=== PATIENT | male | born 1965 | race Two or more races ===

== ENCOUNTER 2024-07-24 18:34 | Emergency (ER) | payer MEDICAID, SELFPAY ==
[2024-07-24] VITALS (17 sets, daily range): BP systolic 119–238; BP diastolic 75–179; PULSE 42–124; RESP 11–24; TEMP 34.2–34.3; O2SAT 96–100; BMI 28.9
[2024-07-24] MEDS: ETOMIDATE INJ 2 MG/ML VIAL 10 ML 20 MG IVP (18:40)
--- NOTE | 2024-07-24 18:43 | PC.NURSE ---
Addendum entered by Chu Farooq RN 07/24/24 19:28: while intubating pt and getting report from EM, [facility] came to bedside to inform that meth pipe was found next to where pt was found down. Original Note: PT ARRIVES VIA EMS, FOUND ON GROUND, [facility] ADMINISTERED 8MG NARCAN, EMS GAVE 2MG NO RESPONSE TO ANY NARCAN
--- NOTE | 2024-07-24 18:45 | XR_ITS ---
Examination: AP chest single view Technique: AP portable supine chest single view exam date and time: July 24, 2024 1902 hrs. Comparison March 27, 2005 Indications: Stroke alert, massive brainstem hemorrhage today with hypoxic respiratory failure Findings: Endotracheal tube tip 4.5 cm above rojelio No aspiration pneumonia Normal heart size Osseous structures are intact Impression: Endotracheal tube tip 4.5 cm above rojelio No aspiration pneumonia
[2024-07-24] MEDS: CALCIUM CHLORIDE 10% INJ 10 ML SYRG IV (18:50)
--- NOTE | 2024-07-24 18:54 | XR_ITS ---
Examination: CTA carotids with intravenous contrast CTA brain, head with intravenous contrast. 2-D sagittal, coronal reconstructions. 3-D reconstructions. Exam date and time: July 24, 2024 1936 hrs. Indications: Stroke alert today, onset focal neurologic deficit today, massive brainstem hemorrhage on CT study July 24, 2024 CTDI: vol (mGy) 10.9 DLP: (mGycm) 444 Technique: Multiple CTA axial brain, head carotid images post intravenous contrast injection 100 cc, [id number]. 2-D sagittal, coronal reconstructions. 3-D reconstructions, 3-D post processing including vascular maximum intensity projection images. Low dose protocols were performed. One or more of the following dose reduction techniques were used; automated exposure control, adjustment of the mA and/or KV according to patient size, use of iterative reconstruction technique. 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
--- NOTE | 2024-07-24 18:54 | XR_ITS ---
Examination: CT brain head without contrast. 2-D sagittal coronal reconstructions Date and time of exam:July 24, 2024 1904 hrs. Indications: Stroke alert, onset focal neurologic deficit today CTDI: vol (mGy):50.4 DLP: (mGycm):1011 Technique: Multiple CT axial sections of the brain have been obtained, 5 mm slice thickness. Contrast has not been administered. 2-D sagittal, coronal reconstructions have been obtained Low dose protocols were performed. One or more of the following dose reduction techniques were used; automated exposure control, adjustment of the mA and/or KV according to patient size, use of iterative reconstruction technique. Findings: Large, 5 x 3.7 x 3.7 cm brainstem hemorrhage This hemorrhage has ruptured into the ventricular system and is producing obstructive hydrocephalus, compressing the aqueduct with enlargement of the frontal horns and lateral ventricles Hemorrhage is present in the third ventricle lateral ventricles frontal horn as well as subarachnoid hemorrhage in the basal cisterns including perimesencephalic cistern There also is subdural hemorrhage, minimal, 2 mm along the cerebellar tentorium and cerebral falx There is edema surrounding the brain stem hemorrhage extending into the cerebellar hemispheres The cerebellar tonsils are not optimally visualized Fourth ventricle is severely compressed by the brainstem hemorrhage Cranial vault is intact Impression: Massive brainstem hemorrhage which has ruptured into the ventricular system. The brainstem hemorrhage is producing obstructive hydrocephalus Extensive subarachnoid hemorrhage basal cisterns and milder subdural hemorrhage as above
--- NOTE | 2024-07-24 19:05 | PC.NURSE ---
[facility] Case # [id number] has been created
[2024-07-24 19:06] LABS: Collection Type, Urine Catheter; RBC,Urine 0 /hpf (0-3); Squamous Epithelial Cell,Urine 0 /hpf (0-5); WBC,Urine 0 /hpf (0-5)
[2024-07-24] MEDS: SUCCINYLCHOLINE INJ 20 MG/ML VIAL 10 ML 150 MG IV (19:06)
[2024-07-24] MEDS: Sodium Bicarb Inj 8.4% SYR 50 ML SYRINGE IV ×2 (19:08→19:16)
[2024-07-24] MEDS: fentaNYL 2,500 MCG/250 ML BAG 2,500 MCG/250 ML BAG IV (19:09)
[2024-07-24 19:10] LABS: Basophils % (Auto) 0 % (0-2.5); Eosinophils # (Auto) 0.1 Thou/mm3 (0.0-0.5); Eosinophils % (Auto) 0 % (0-10); Hematocrit 48.4 % (41.0-53.0); Hemoglobin 16.4 g/dL (13.5-16.0); Immature Granulocytes % (Auto) 1 % (0-0); Immature Granulocytes Auto 0.07 Thou/mm3 (0.00-0.00); Lymphocytes # (Auto) 1.8 Thou/mm3 (1.0-4.8); Lymphocytes % (Auto) 16 % (10-50); Mean Corpuscular HGB Conc 33.9 g/dl (31.0-37.0); Mean Corpuscular Hemoglobin 32.2 pg (25.0-35.0); Mean Corpuscular Volume 95 fL (80-100); Monocytes # (Auto) 0.9 Thou/mm3 (0.0-0.8); Monocytes % (Auto) 7 % (0-12); Neutrophils # (Auto) 8.7 Thou/mm3 (1.8-7.7); Neutrophils % (Auto) 75 % (37-80); Nucleated Red Blood Cell % 0 /100 WBC (0); Platelet Count 360 Thou/mm3 (140-440); RDW Standard Deviation 40.8 fL (35.1-43.9); Red Blood Count 5.09 Miln/mm3 (4.50-5.90); White Blood Count 11.5 Thou/mm3 (3.8-10.6)
[2024-07-24] MEDS: MIDAZOLAM/NS 100 MG IVPB 100 MG/100 ML BAG IV (19:10)
--- NOTE | 2024-07-24 19:12 | XR_ITS ---
Examination: AP chest single view Technique one AP portable supine chest single view Exam date and time: July 24, 20242000 hrs. Comparison July 24, 20241901 hrs. Indications: Hypoxic respiratory failure postintubation Findings: Tracheal tube tip 6.2 cm above rojelio Normal heart size No aspiration pneumonia Moderate osteopenia Impression: Tracheal tube tip 6.2 cm above rojelio
[2024-07-24] MEDS: EPINEPHrine INJ 0.1 MG/ML SYRINGE 10ML 1 MG IV (19:16)
[2024-07-24] MEDS: SODIUM BICARB INJ 8.4% 1 mEq/ML VIAL 50 ML 50 MEQ IV ×2 (19:16→19:17)
--- NOTE | 2024-07-24 19:17 | PC.NURSE ---
PT WENT INTO VTACH, NOT SUSTAINED AND 2GM OF MAGNESIUM GIVEN VIA CRASH CART. DR TORRES AT BEDSIDE
[2024-07-24 19:22] LABS: HCG Titer if Positive Negative; INR 1.1 (0.9-1.3); Partial Thromboplastin Time 29.9 Seconds (22.0-36.0); Prothrombin Time 12.3 Seconds (9.0-12.2)
[2024-07-24] MEDS: NICARDIPINE/NS 20MG IVPB 20 MG/200 ML BAG 50 MG IV (19:22)
--- NOTE | 2024-07-24 19:23 | EDNOTE_ITS ---
Altered Mental Status RME/HPI General Chief Complaint: Overdose Stated Complaint: STAT Time Seen by Provider: 07/24/24 18:57 Arrival date/time: 07/24/24 18:34 RME / HPI RME / HPI narrative: DR. RANGEL MAIN ED EVALUATION: 59 year old male presents to the Emergency Department [facility] with complaint of altered mental status; patient was found unresponsive on the ground. Last well known time was 2 PM today. No history or ROS obtainable by patient due to unresponsiveness. Related Data Home Medications ?Medication ?Instructions ?Recorded ?Confirmed No Known Home Medications 07/24/24 07/24/24 Allergies Allergy/AdvReac Type Severity Reaction Status Date / Time No Known Allergies Allergy Verified 09/19/22 12:19 Review of Systems Review of Systems ROS Unobtainable: unobtainable due to mental status Past Medical History Past Medical History CARDIAC: Negative Congestive Heart Failure RESPIRATORY: Negative Chronic Obstructive Pulmonary Disease (COPD) GENITOURINARY: Negative Renal Disease ENDOCRINE: Negative Diabetes Mellitus Type 1 or Diabetes Mellitus Type 2 Social History SMOKING STATUS: Never smoker SUBSTANCE USE: methamphetamine ALCOHOL: Current ED Exam General General appearance: Present other (nonresponsive, foaming in the mouth; no tonic clonic seizure activity) Head Head exam: Present atraumatic and other (no obvious head trauma) Eye Eye exam: Present other (fixed and dilated) ENT ENT exam: Present normal exam (no blood noted in the ears or mouth) and other Expanded ENT Exam Teeth exam: Present other (one front tooth missing) Chest Chest inspection: Present other (no obvious trauma) Respiratory Respiratory exam: Present respiratory distress (decreased bilateral breath sounds) and other (intubated); Absent wheezes Abdominal Exam Abdominal exam: Present other (no deformity) Extremities Exam Extremities exam: Present normal inspection Back Exam Back exam: Present normal inspection Neurological Exam Neurological exam: Present other (GCS of 3. Unable to examine. ) Psychiatric Psychiatric exam: Present other (Unable to examine. ) Skin Skin exam: Absent rash Course Course Course Narrative: 1842: Intubation time 1916: Patient in V-tachycardia. We gave calcium x2, bicarb x2, epi x1. Initial blood pressure was 234/170 and current blood pressure is 151/88. 1934: Patient went to CT. 1952: C collar placed. 2100: Discussed the findings and plan of care with both and daughter at bedside. At this time, they understand patient's condition and would like a full code. 2119: I spoke to the son Luke, explained the patient's case and severe condition. Quality Measures none Orders Category Date Time Status Bedside Blood Glucose NOW Care 07/24/24 18:54 Active Cyber Security Administrator NOW Care 07/24/24 18:54 Active Continuous Pulse Oximetry NOW Care 07/24/24 18:54 Completed EKG (ED ONLY) *Do not use* NOW Care 07/24/24 18:54 Completed In and Out Catheter NEEDED Care 07/24/24 18:54 Active Insert IV NOW Care 07/24/24 18:54 Active Intubation NOW Care 07/24/24 19:20 Completed NIH Stroke Scale now Care 07/24/24 18:54 Active NPO NOW Care 07/24/24 18:54 Active Nurse Swallow Screen x1 Care 07/24/24 18:54 Active Consult to Neurology / Tele-Neurology Routine Cons 07/24/24 18:[address] angio stroke protocol Stat Exams 07/24/24 18:[address] stroke protocol Stat Exams 07/24/24 18:54 Completed CXR [XR chest 1V post procedure] Stat Exams 07/24/24 19:12 Completed EKG (ED Only) Stat Exams 07/24/24 18:54 Ordered XR chest 1V post procedure Stat Exams 07/24/24 18:45 Completed Arterial Blood Gas Stat Lab 07/24/24 19:16 Completed CBC Stat Lab 07/24/24 19:02 Completed Comprehensive Metabolic Panel Stat Lab 07/24/24 19:02 Completed Drug Screen,Urine Stat Lab 07/24/24 18:56 Completed HCG Titer if Positive Stat Lab 07/24/24 19:02 Completed Magnesium Stat Lab 07/24/24 19:02 Completed Partial Thromboplastin Time Stat Lab 07/24/24 19:02 Completed Prothrombin Time with INR Stat Lab 07/24/24 19:02 Completed Troponin I Stat Lab 07/24/24 19:02 Completed Urinalysis Stat Lab 07/24/24 18:56 Completed Urine Culture Stat Lab 07/24/24 18:56 Received ALBUTEROL RT 0.5ml [Proventil Rt 0.5ml] Med 07/24/24 19:20 Discontinued 15 mg INH X1 ONE Calcium Chloride 10% Abboject Med 07/24/24 18:44 Discontinued 10 ml IV .STK-MED ONE Calcium Chloride 10% Abboject Med 07/24/24 18:47 Discontinued 10 ml IV X1 ONE Calcium Gluconate 10% Inj Med 07/24/24 18:44 Discontinued See Dose Instructions .ROUTE .STK-MED ONE EPINEPHrine Inj Abboject Med 07/24/24 19:16 Discontinued 1 mg IV X1 ONE Etomidate Inj [Amidate Inj] Med 07/24/24 18:34 Discontinued 20 mg .ROUTE .STK-MED ONE Etomidate Inj [Amidate Inj] Med 07/24/24 18:39 Discontinued 20 mg IVP X1 ONE Midazolam/Ns 100 mg Ivpb [Versed Pf Inj in Ns Premix] Med 07/24/24 18:45 Disc ontinued 100 mg in 100 ml IV 1 mg/hr Midazolam/Ns 100 mg Ivpb [Versed Pf Inj in Ns Premix] Med 07/24/24 18:57 Discontinued 100 mg in 100 ml IV 1 mg/hr Nicardipine/Ns 20Mg Ivpb [Cardene Ivpb] Med 07/24/24 19:13 Discontinued 20 mg in 200 ml IV .STK-MED Nicardipine/Ns 20Mg Ivpb [Cardene Ivpb] Med 07/24/24 19:19 Discontinued 20 mg in 200 ml IV 5 mg/hr Ondansetron Inj [Zofran Inj] Med 07/24/24 18:54 Discontinued 4 mg IV Q4HR PRN Sodium Bicarb 8.4% 50ml Vial* Med 07/24/24 19:15 Discontinued 50 meq IV X1 ONE Sodium Bicarb 8.4% 50ml Vial* Med 07/24/24 19:16 Discontinued 50 meq IV X1 ONE Sodium Bicarb 8.4% SYR Med 07/24/24 18:48 Discontinued 50 ml IV .STK-MED ONE Sodium Bicarb 8.4% SYR Med 07/24/24 19:35 Discontinued 50 ml IV X1 ONE Sodium Chloride Rt Noemi 0.9% [NS Rt Noemi 0.9%] Med 07/24/24 19:19 Discontinued 3 ml INH PRN PRN Succinylcholine Inj [Anectine Inj] Med 07/24/24 18:39 Discontinued 150 mg IV X1 ONE Succinylcholine Inj [Anectine Inj] Med 07/24/24 18:34 Discontinued 200 mg .ROUTE .STK-MED ONE fentaNYL 2,500 MCG/250 ML BAG [Sublimaze Inj 2,500 MCG/ Med 07/24/24 18:46 Discontinued 250 ML BAG] 2,500 mcg in 250 ml IV 25 mcg/hr fentaNYL 2,500 MCG/250 ML BAG [Sublimaze Inj 2,500 MCG/ Med 07/24/24 18:56 Discontinued 250 ML BAG] 2,500 mcg in 250 ml IV 25 mcg/hr levETIRAcetam INJ [Keppra Inj] Med 07/24/24 21:15 Discontinued 1,000 mg .ROUTE .STK-MED ONE levETIRAcetam INJ [Keppra Inj] Med 07/24/24 19:29 Discontinued 1,000 mg IVP X1 ONE levETIRAcetam INJ [Keppra Inj] Med 07/24/24 21:02 Discontinued 2,000 mg IVP X1 ONE Mechanical [Volume Ventilator] Stat RT 07/24/24 Active Oxygen Delivery NOW RT 07/24/24 18:54 Active Vital Signs Vital signs: Vital Signs Pulse Rate 46 L 07/24/24 18:54 Procedures -ED EKG Interpretation #1: Date of EK07/24/24 Time of EK:43 Rate: 54 Interpretation: Reviewed by me EKG Impression: Normal sinus rhythm Additional EKG comment: Hyperacute T waves. QTC 491 LVH Impression. Sinus bradycardia Intubation Time out performed: Yes sedative: Etomidate Mg Given: 20 paralytic: Succinylcholine Mg Given: 100 Laryngoscope: fiber optic video scope Assist Device Used: fiber optic device ET Tube Size: 8 ET Tube Uncuffed: No Tube Secured Depth (cm): 22 Tube Secured Location: teeth Tube Placement Confirmation: visualized tube passing through cords, equal breath sounds bilaterally, no breath sounds over epigastrium and confirmation by capnometry Patient Tolerated Procedure: well and no complications Intubation Complications: none Altered Mental Status MDM Narrative MDM Narrative:: 191: Patient wide complex possibly on monitor. + pulse present. LKN 2p? . No indication for tPA secondary to ICH. Initial blood pressure was 234/170 and current blood pressure is 151/88. Melissa Franco am scribing for and in the presence of Dr. Rangel. Patient data External records reviewed:: [facility] previous records (Reviewed last ED visit dated 09/19/22, discharged with the following: Other fatigue.) and EMS form Clinical information provided by:: EMS and family Social determinants that could affect healthcare access:: substance use (methamphetamine abuse) Patient has the following chronic illnesses:: Denies any PMHx, surgeries, daily medications, or known allergies. How is presenting disease/condition affected by chronic disease/condition?: no chronic disease Evaluation data The following diagnostics were reviewed and interpreted by me:: lab results, radiology exam(s) and EKG tracing(s) Lab and/or radiology exams considered but not ordered:: none Interpretation Summary: Procedure(s): CT stroke protocol Accession Number(s): [id number] cc: Osmar Araya MD; NO PRIMARY/FAMILY,PHYSICIAN; Adalgisa Rangel MD~ Examination: CT brain head without contrast. 2-D sagittal coronal reconstructions Date and time of exam:July 24, 2024 1904 hrs. Indications: Stroke alert, onset focal neurologic deficit today CTDI: vol (mGy):50.4 DLP: (mGycm):1011 Technique: Multiple CT axial sections of the brain have been obtained, 5 mm slice thickness. Contrast has not been administered. 2-D sagittal, coronal reconstructions have been obtained Low dose protocols were performed. One or more of the following dose reduction techniques were used; automated exposure control, adjustment of the mA and/or KV according to patient size, use of iterative reconstruction technique. Findings: Large, 5 x 3.7 x 3.7 cm brainstem hemorrhage This hemorrhage has ruptured into the ventricular system and is producing obstructive hydrocephalus, compressing the aqueduct with enlargement of the frontal horns and lateral ventricles Hemorrhage is present in the third ventricle lateral ventricles frontal horn as well as subarachnoid hemorrhage in the basal cisterns including perimesencephalic cistern There also is subdural hemorrhage, minimal, 2 mm along the cerebellar tentorium and cerebral falx There is edema surrounding the brain stem hemorrhage extending into the cerebellar hemispheres The cerebellar tonsils are not optimally visualized Fourth ventricle is severely compressed by the brainstem hemorrhage Cranial vault is intact Impression: Massive brainstem hemorrhage which has ruptured into the ventricular system. The brainstem hemorrhage is producing obstructive hydrocephalus Extensive subarachnoid hemorrhage basal cisterns and milder subdural hemorrhage as above Dictated By: Osmar Araya MD Procedure(s): XR chest 1V post procedure Accession Number(s): [id number] cc: Osmar Araya MD; NO PRIMARY/FAMILY,PHYSICIAN; Adalgisa Rangel MD~ Examination: AP chest single view Technique: AP portable supine chest single view exam date and time: July 24, 2024 1902 hrs. Comparison March 27, 2005 Indications: Stroke alert, massive brainstem hemorrhage today with hypoxic respiratory failure Findings: Endotracheal tube tip 4.5 cm above rojelio No aspiration pneumonia Normal heart size Osseous structures are intact Impression: Endotracheal tube tip 4.5 cm above rojelio No aspiration pneumonia Dictated By: Osmar Araya MD Procedure(s): XR chest 1V post procedure Accession Number(s): [id number] cc: Osmar Araya MD; NO PRIMARY/FAMILY,PHYSICIAN; Adalgisa Rangel MD~ Examination: AP chest single view Technique one AP portable supine chest single view Exam date and time: July 24, 2024 2001 hrs. Comparison July 24, 2024 1902 hrs. Indications: Hypoxic respiratory failure postintubation Findings: Tracheal tube tip 6.2 cm above rojelio Normal heart size No aspiration pneumonia Moderate osteopenia Impression: Tracheal tube tip 6.2 cm above rojelio Dictated By: Osmar Araya MD Procedure(s): CT angio stroke protocol Accession Number(s): [id number] cc: Osmar Araya MD; NO PRIMARY/FAMILY,PHYSICIAN; Adalgisa Rangel MD~ Examination: CTA carotids with intravenous contrast CTA brain, head with intravenous contrast. 2-D sagittal, coronal reconstructions. 3-D reconstructions. Exam date and time: July 24, 2024 1936 hrs. Indications: Stroke alert today, onset focal neurologic deficit today, massive brainstem hemorrhage on CT study July 24, 2024 CTDI: vol (mGy) 10.9 DLP: (mGycm) 444 Technique: Multiple CTA axial brain, head carotid images post intravenous contrast injection 100 cc, [id number]. 2-D sagittal, coronal reconstructions. 3-D reconstructions, 3-D post processing including vascular maximum intensity projection images. Low dose protocols were performed. One or more of the following dose reduction techniques were used; automated exposure control, adjustment of the mA and/or KV according to patient size, use of iterative reconstruction technique. 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 Dictated By: Osmar Araya MD Medications / Prescriptions Medications or Prescriptions considered but not ordered:: none Medication administrations:: Medication Administration History Discontinued Medications Albuterol (Albuterol Rt 2.5 Mg/0.5 Ml Nebu) 15 mg INH X1 ONE Stop: 07/24/24 19:21 Last Admin: 07/24/24 21:24 Dose: Not Given Documented By: PAR Non-Admin Reason: Change of Condition Calcium Chloride (Calcium Chloride 10% Inj 10 Ml Syrg) 10 ml IV X1 ONE Stop: 07/24/24 18:48 Last Admin: 07/24/24 18:50 Dose: 10 ml Documented By: TM Calcium Chloride (Calcium Chloride 10% Inj 10 Ml Syrg) Confirm Administered Dose 10 ml IV .STK-MED ONE Stop: 07/24/24 18:45 Last Admin: 07/24/24 19:07 Dose: Not Given Documented By: TM Non-Admin Reason: Override Medication Calcium Gluconate (Calcium Gluconate 10% Inj 1 Gm/10 Ml Vial) Confirm Administered Dose 0 gm .ROUTE .STK-MED ONE Stop: 07/24/24 18:45 Last Admin: 07/24/24 19:08 Dose: Not Given Documented By: TM Non-Admin Reason: Override Medication Epinephrine HCl (Epinephrine Inj 0.1 Mg/Ml Syringe 10ml) 1 mg IV X1 ONE Stop: 07/24/24 19:17 Last Admin: 07/24/24 19:16 Dose: 1 mg Documented By: AC Etomidate (Etomidate Inj 2 Mg/Ml Vial 10 Ml) 20 mg IVP X1 ONE Stop: 07/24/24 18:40 Last Admin: 07/24/24 18:40 Dose: 20 mg Documented By: TM Etomidate (Etomidate Inj 2 Mg/Ml Vial 10 Ml) Confirm Administered Dose 20 mg .ROUTE .STK-MED ONE Stop: 07/24/24 18:35 Last Admin: 07/24/24 18:51 Dose: Not Given Documented By: TM Non-Admin Reason: Override Medication Midazolam HCl (Versed Pf Inj In Ns Premix) 100 mg in 100 mls @ 1 mls/hr IV .Q 24H PRN; Protocol PRN Reason: PER PROTOCOL Stop: 07/29/24 18:44 Last Admin: 07/24/24 19:10 Dose: 1 mg/hr, 1 mls/hr Documented By: PATIENCE Co-signed By: VG Fentanyl Citrate (Sublimaze Inj 2,500 Mcg/250 Ml Bag) 2,500 mcg in 250 mls @ 2.5 mls/hr IV .Q24H PRN; Protocol PRN Reason: PER PROTOCOL Stop: 07/29/24 18:45 Last Titration: 07/24/24 20:00 Dose: 25 mcg/hr, 2.5 mls/hr Documented By: Admin: 07/24/24 19:09 Dose: 25 mcg/hr, 2.5 mls/hr Documented By: TM Co-signed By: VG Fentanyl Citrate (Sublimaze Inj 2,500 Mcg/250 Ml Bag) 2,500 mcg in 250 mls @ 2.5 mls/hr IV .Q24H PRN; Protocol PRN Reason: PER PROTOCOL Stop: 07/29/24 18:55 Midazolam HCl (Versed Pf Inj In Ns Premix) 100 mg in 100 mls @ 1 mls/hr IV .Q24H PRN; Protocol PRN Reason: PER PROTOCOL Stop: 07/29/24 18:56 Nicardipine/Sodium Chloride (Cardene Ivpb) Confirm Administered Dose 20 mg in 200 mls @ ud IV .STK-MED ONE Stop: 07/24/24 19:14 Last Admin: 07/24/24 19:23 Dose: Not Given Documented By: JEREMIAH Non-Admin Reason: Override Medication Nicardipine/Sodium Chloride (Cardene Ivpb) 20 mg in 200 mls @ 50 mls/hr IV .Q4H PRN; Protocol PRN Reason: PER PROTOCOL Stop: 08/23/24 19:18 Last Titration: 07/24/24 20:00 Dose: 2.5 mg/hr, 25 mls/hr Documented By: Titration: 07/24/24 19:26 Dose: 2.5 mg/hr, 25 mls/hr Documented By: Admin: 07/24/24 19:22 Dose: 5 mg/hr, 50 mls/hr Documented By: JEREMIAH Levetiracetam (Levetiracetam Inj 100 Mg/Ml Vial 5ml) 1,000 mg IVP X1 ONE Stop: 07/24/24 19:30 Last Admin: 07/24/24 19:48 Dose: 1,000 mg Documented By: JEREMIAH Levetiracetam (Levetiracetam Inj 100 Mg/Ml Vial 5ml) 2,000 mg IVP X1 ONE Stop: 07/24/24 21:03 Last Admin: 07/24/24 21:25 Dose: 1,000 mg Documented By: RENATO Comments: this the 1g the other 1gm that was not given Admin: 07/24/24 21:14 Dose: 1,000 mg Documented By: RENATO Comments: only gave 1g of keppra due to only having 1g in the ER. House sup w ill bring more Levetiracetam (Levetiracetam Inj 100 Mg/Ml Vial 5ml) Confirm Administered Dose 1,000 mg .ROUTE .STK-MED ONE Stop: 07/24/24 21:16 Last Admin: 07/24/24 21:26 Dose: Not Given Documented By: RENATO Non-Admin Reason: Duplicate Medication on eMAR Ondansetron HCl (Ondansetron Inj 2 Mg/Ml Inj 2 Ml) 4 mg IV Q4HR PRN PRN Reason: NAUSEA OR VOMITING Stop: 08/23/24 18:53 Sodium Bicarbonate (Sodium Bicarb Inj 8.4% Syr 50 Ml Syringe) Confirm Administered Dose 50 ml IV .STK-MED ONE Stop: 07/24/24 18:49 Last Admin: 07/24/24 19:08 Dose: 50 ml Documented By: PATIENCE Sodium Bicarbonate (Sodium Bicarb Inj 8.4% 1 Meq/Ml Vial 50 Ml) 50 meq IV X1 ONE Stop: 07/24/24 19:17 Last Admin: 07/24/24 19:16 Dose: 50 meq Documented By: RENATO Sodium Bicarbonate (Sodium Bicarb Inj 8.4% Syr 50 Ml Syringe) 50 ml IV X1 ONE Stop: 07/24/24 19:36 Last Admin: 07/24/24 19:16 Dose: 50 ml Documented By: DB Sodium Bicarbonate (Sodium Bicarb Inj 8.4% 1 Meq/Ml Vial 50 Ml) 50 meq IV X1 ONE Stop: 07/24/24 19:16 Last Admin: 07/24/24 19:17 Dose: 50 meq Documented By: DB Sodium Chloride (Sodium Chloride Rt Noemi 0.9% 3 Ml Nebu) 3 ml INH PRN PRN PRN Reason: SOLN Stop: 08/23/24 19:18 Succinylcholine Chloride (Succinylcholine Inj 20 Mg/Ml Vial 10 Ml) 150 mg IV X1 ONE Stop: 07/24/24 18:40 Last Admin: 07/24/24 19:06 Dose: 150 mg Documented By: TM Succinylcholine Chloride (Succinylcholine Inj 20 Mg/Ml Vial 10 Ml) Confirm Administered Dose 200 mg .ROUTE .STK-MED ONE Stop: 07/24/24 18:35 Last Admin: 07/24/24 18:51 Dose: Not Given Documented By: TM Non-Admin Reason: Override Medication see above Consultations Consultation(s) initiated? (list below): Yes Consultation #1 (Physician, Specialty, Details): Discussed test HPI, PMHx, lab, radiology results and/or management with Dr. Jennifer santiago, neuro team sports sales associate. Would like the patient transfered ER to ER, accepted the patient for transfer to [facility]. Time: 21:00 Consultation #2 (Physician, Specialty, Details): Discussed test HPI, PMHx, lab, radiology results and/or management with Dr. Edwards, emergency doctor from [place] [facility]. Will accept for transfer for further evaluation and management. Time: 21:10 Consultation #3 (Physician, Specialty, Details): 2114: At this time we are waiting for surgery to accept the patient for transfer; we cannot transfer patient until surgery accepts the patient. Diagnosis Differential diagnosis altered mental status: altered mental status, subarachnoid hemorrhage and other (drug overdose, stroke, cardiac arrest) Most likely diagnosis given after review of the tests above:: Brainstem hemorrhage Admission Indicated Admission indicated?: not indicated Explain why admission is indicated or not indicated:: Patient needs higher level of care and will be transferred. Admission Request Was there a request for admission?: No Disposition Plan Disposition Plan: Transfer Critical Care Time Critical Care Time Critical Care Time: Yes Total Critical Care Time (min.): 90 Attestation: The high probability of sudden, clinically significant deterioration in the patient?s condition required the highest level of my preparedness to intervene urgently. The services I provided to this patient were to treat and/or prevent clinically significant deterioration. Services included the following: chart data review, reviewing nursing notes and/or old charts, documentation time, strategic planning consultant collaboration regarding findings and treatment options, medication orders and management, direct patient care, vital sign assessments and ordering, interpreting and reviewing diagnostic studies and lab tests. Aggregate critical care time includes only time during which I was engaged in work directly related to the patient?s care, as described above, whether at bedside or elsewhere in the Emergency Department. It did not include time spent performing other reported procedures or the services of residents, students, nurses or physician assistants. Discharge Plan Plan Facility Pt Being Transferred to: [facility] Service Needed for Transfer: Neurosurgery Disposition Comment: NeuroICU Patient condition on transfer: Benefits outweigh risks Prescriptions/Referrals Prescriptions/Med Rec: No Action No Known Home Medications Referrals: No Primary/Family,Physician [Primary Care Provider] - In 1 week Problem List Clinical Impression: Brainstem hemorrhage Patient/Caregiver Discharge Instructions Print Language: [place] Stand Alone Forms: [employer] Award Info., Patient Portal Info Letter
[2024-07-24 19:25] LABS: Base Excess 27 (-3-3); HCO3 54 mEq/L (20-26); Inspired Oxygen, FIO2 50 %; O2 Saturation 99 % (91-98); PCO2 63 mmHg (32.0-48.0); PO2 239 mmHg (83-108); pH, Arterial 7.55 (7.35-7.45)
[2024-07-24 19:26] LABS: Allen Test Performed/OK; Puncture Site Right Radial
[2024-07-24 19:26] LABS: Alanine Aminotransferase 36 U/L (10-49); Albumin, Serum 5.5 gm/dL (3.5-5.0); Albumin/Globulin Ratio 1.8 (1.2-2.2); Alkaline Phosphatase 89 U/L (46-116); Anion Gap 10 (7-16); Aspartate Amino Transferase 30 U/L (0-34); BUN/Creatinine Ratio 14 Ratio (12-20); Blood Urea Nitrogen 11 mg/dL (9-23); Calcium 9.6 mg/dL (8.3-10.6); Calcium (Corrected) 9.6 mg/dL (8.5-10.1); Carbon Dioxide 27.2 mMol/L (20.0-31.0); Chloride 96 mMol/L (98-107); Creatinine (Component) 0.8 mg/dL (0.6-1.3); Estimated Creatinine Clearance 92.4 mL/min (>60); Glucose 181 mg/dL (74-106); Magnesium 2.2 mg/dL (1.6-2.6); Osmolality,Calculated 270 (275-295); Potassium 3.4 mMol/L (3.4-5.1); Sodium 133 mMol/L (136-145); Total Protein 8.5 gm/dL (5.7-8.2); Troponin I 0.021 ng/mL (0.0-0.045); eGFR > 60 See Note
[2024-07-24 19:29] LABS: Amphetamine/Methamp Scrn,U Positive (Negative); Barbiturate Screen,Urine Negative (Negative); Benzodiazepines Screen,Urine Negative (Negative); Benzoylecgonine Screen, Ur Negative (Negative); Fentanyl Screen,Urine Negative (Negative); Opiate Screen,Urine Negative (Negative); THC Screen,Urine Negative (Negative)
--- NOTE | 2024-07-24 19:41 | PC.NURSE ---
SOME MEDS THAT WERE GIVEN WERE PULLED FROM CRASH CART AND NOT THE OMNICELL
[2024-07-24 19:44] LABS: Bilirubin,Urine Negative (Negative); Blood,Urine Negative (Negative); Clarity,Urine Clear (Clear/Hazy); Color,Urine Colorless (Lt Yel-Yel); Glucose, Urine 2+ (Negative); Ketones,Urine 2+ (Negative); Leukocyte Esterase,Urine Negative (Negative); Nitrite,Urine Negative (Negative); Protein,Urine Trace (Neg - Trace); Specific Gravity,Urine 1.013 (1.001-1.035); Urobilinogen,Urine Negative mg/dL (0.0-1.0)
[2024-07-24] MEDS: levETIRAcetam INJ 100 MG/ML VIAL 5ML 1000 MG IVP (19:48)
--- NOTE | 2024-07-24 20:24 | PC.NURSE ---
[facility] FAXED PAPERWORK FOR POSSIBLE TRANSFER
--- NOTE | 2024-07-24 20:24 | PD.TNEURO ---
Tele Neuro Consultation Consultation Date 07/24/24 Most Recent Vital Signs Last Vital Signs Temp 93.8 F L 07/24/24 19:00 Pulse 55 L 07/24/24 20:15 Resp 19 07/24/24 20:15 BP 151/88 H 07/24/24 20:15 Pulse Ox 96 07/24/24 20:15 O2 Del Method Mechanical Ventilation 07/24/24 19:27 FiO2 50 07/24/24 19:30 Laboratory-Coagulation Panel PT 12.3 Seconds (9.0-12.2) H 07/24/24 19:02 INR 1.1 (0.9-1.3) 07/24/24 19:02 APTT 29.9 Seconds (22.0-36.0) 07/24/24 19:02 Consultation Narrative [facility] Patient Name: BRADLEY BUENO Date of : 1965 Identification Number: Date of Service: 07/24/2024 19:05:11 Diagnosis: ? R41.89 - Unresponsive ? I61.9 - Intracerebral haemorrhage, unspecified Impression: 59-year-old male with reported history of methamphetamine abuse, other medical history not known who apparently was found outside on the ground unresponsive. Patient was given Narcan without improvement. He was bagged by EMS on arrival and subsequently intubated after given succinylcholine, etomidate and started on fentanyl and Versed drips. He is unresponsive with occasional myoclonic jerks of his legs. He did develop some bradycardia reportedly and was given epinephrine. Keppra 1 g IV ordered. On examination, patient intubated, unresponsive on ventilator, some slight withdrawal to all 4 limbs to painful stimuli. NIHSS = 26.CT head reveals Massive brainstem hemorrhage with significant blood in the ventricular system filling of fourth ventricle (with adjacent blood about the posterior bartolome and anterior cerebellum) as well as third and fourth ventricles with suspected early hydrocephalus . Acute ICH/IVH-Stat neurosurgery consultation. Recommendation: Diagnostic Studies: ? Repeat CT head in first 8-12hrs ? CTA head and neck with contrast Laboratory Studies: ? INR/PT ? aPTT? ? CBC Medications: ? Hold?antiplatelet?therapy/NSAIDS/Anticoagulation ? Load with Keppra 1gm now. ? Keppra 500mg bid. Nursing Recommendations: ? Telemetry, IV Fluids?Avoid dextrose containing fluids, Maintain euglycemia ? Head of bed 30 degrees ? Neuro checks q1-2?hrs?during ICU stay ? Once stable neuro checks q4?hrs ? keep BP less than 140/90's with goal of 130/80s Consultations: ? Need Neurosurgery consultation?STAT ? Recommend Speech therapy if failed dysphagia screen ? Physical therapy/Occupational therapy DVT Prophylaxis: ? SCDs Disposition: ? Neurology will Follow Metrics: Last Known Well: 07/24/2024 14:00:00 Dispatch Time: 07/24/2024 19:05:11 Arrival Time: 07/24/2024 18:34:00 Initial Response Time: 07/24/2024 19:12:45 Symptoms: Unresponsive . Initial patient interaction: 07/24/2024 19:22:48 NIHSS Assessment Completed: 07/24/2024 19:27:33 Patient is not a candidate for Thrombolytic. Thrombolytic Medical Decision: 07/24/2024 19:27:33 Patient was not deemed candidate for Thrombolytic because of following reasons: LKW outside 4.5 hr window. . Current intracranial hemorrhage . I personally Reviewed the CT Head and it Massive brainstem hemorrhage with IVH involving fourth ventricle, third and lateral ventricles with hydrocephalus Primary Provider Notified of Diagnostic Impression and Management Plan on: 07/24/2024 20:21:18 History of Present Illness: Patient is a 59 year old Male. Patient was brought by EMS for symptoms of Unresponsive . 59-year-old male with reported history of methamphetamine abuse, other medical history not known who apparently was found outside on the ground unresponsive. Patient was given Narcan without improvement. He was bagged by EMS on arrival and subsequently intubated after given succinylcholine, etomidate and started on fentanyl and Versed drips. He is unresponsive with occasional myoclonic jerks of his legs. He did develop some bradycardia reportedly and was given epinephrine. Medications: Anticoagulant use: Unknown Antiplatelet use: Unknown Reviewed EMR for current medications Other Medications Pertinent To Assessment Include: Unknown Allergies: Reviewed Description: Unknown Social History: Unable To Obtain Due To Patient Status : Patient Is Obtunded/ Comatose Family History: Family History Cannot Be Obtained Because:Patient Is Obtunded/ Comatose ROS : ROS Cannot Be Obtained Because: Patient Is Obtunded/ Comatose Past Surgical History: Past Surgical History Cannot Be Obtained Because: Patient Is Obtunded/ Comatose There Is No Surgical History Contributory To Today?s Visit NIHSS may not be reliable due to: Patient was intubated and paralyzed Examination: BP(144/90), Pulse(118), Blood Glucose(174) 1A: Level of Consciousness - Movements to Pain + 2 1B: Ask Month and Age - Could Not Answer Either Question Correctly + 2 1C: Blink Eyes & Squeeze Hands - Performs 0 Tasks + 2 2: Test Horizontal Extraocular Movements - Normal + 0 3: Test Visual Good - Bilateral Hemianopia + 3 4: Test Facial Palsy (Use Grimace if Obtunded) - Normal symmetry + 0 5A: Test Left Arm Motor Drift - No Effort Against Burnham + 3 5B: Test Right Arm Motor Drift - No Effort Against Burnham + 3 6A: Test Left Leg Motor Drift - No Effort Against Burnham + 3 6B: Test Right Leg Motor Drift - No Effort Against Burnham + 3 7: Test Limb Ataxia (FNF/Heel-Lopez) - No Ataxia + 0 8: Test Sensation - Coma/Unresponsive + 2 9: Test Language/Aphasia - Coma/Unresponsive + 3 10: Test Dysarthria - Intubated/Unable to Test + 0 11: Test Extinction/Inattention - No abnormality + 0 NIHSS Score: 26 ICH Score: 4 Rosalia Coma Score: 3-4 (+2) Age >= 80: No (0) ICH volume >= 30mL: No (0) Intraventricular hemorrhage: Yes (+1) Infratentorial origin of hemorrhage: Yes (+1) Pre-Morbid Modified Sowmya Scale: 7 Points = Unable to assess This consult was conducted in real time using interactive audio and video technology. Patient was informed of the technology being used for this visit and agreed to proceed. Patient located in hospital and provider located at home/office setting. Due to the immediate potential for life-threatening deterioration due to underlying acute neurologic illness, I spent 54 minutes providing critical care. This time includes time for face to face visit via telemedicine, review of medical records, imaging studies and discussion of findings with providers, the patient and/or family. Dr Saleem [facility] For Inpatient follow-up with [facility] physician please call [facility] at . As we are not an outpatient service for any post hospital discharge needs please contact the hospital for assistance. If you have any questions for the [facility] physicians or need to reconsult for clinical or diagnostic changes please contact us via [facility] at .
--- NOTE | 2024-07-24 20:43 | PC.NURSE ---
COLLETTE FROM [facility], CLINICALS BEING GIVEN BY DR TORRES
--- NOTE | 2024-07-24 20:55 | PC.NURSE ---
[facility] FAXED PAPERWORK FOR POSSIBLE TRANSFER
[2024-07-24] MEDS: levETIRAcetam INJ 100 MG/ML VIAL 5ML 2000 MG IVP ×2 (21:14→21:25)
--- NOTE | 2024-07-24 21:21 | PC.NURSE ---
2119,ACCEPTED TO [facility] BY , ED TO ED, REPORT #[id number], SPOKE TO CRE
--- NOTE | 2024-07-25 00:50 | PC.NURSE ---
PT TRANSPORTED TO [facility], SEE TRANSFER PAPER CHART FOR V/S.
== END 2024-07-24 21:46 | disposition short-term general hospital (02) ==
PROVIDERS: Emergency Provider Emergency Medicine
DX: I61.3 Nontraumatic intracerebral hemorrhage in brain stem (principal); G91.1 Obstructive hydrocephalus; R00.1 Bradycardia, unspecified; Z75.1 Person awaiting admission to adequate facility elsewhere
CPT/HCPCS: 51702; 31500; 36415; 36600; 70450; 70496; 70498; 80053; 80307; 81001; 82803; 83735; 84484; 84703; 85025; 85610; 85730; 87086; 93005; 94002; 96365; 96366; 96374; 96376; 99291; 99292; A4649; J0171; J0330; J1953; J2251; J2404; J3010; J3490; Q9967